=== PATIENT | female | born 1955 | race Caucasian/White ===

== ENCOUNTER 2024-01-21 09:04 | Emergency (ER) | payer BC ==
[~2024-01-21] VITALS: Ht 162.6 cm; Wt 81.6 kg
[2024-01-21 09:56] VITALS: BP 121/65; PULSE 76; TEMP 98.2; O2SAT 96
[2024-01-21 09:59] VITALS: RESP 13
== END 2024-01-21 10:55 | disposition home or self-care (01) ==
LOC: ER 09:04
DX: R20.2 Paresthesia of skin (principal)
CPT/HCPCS: 70450; 99284